=== PATIENT | female | born 1955 | race Caucasian/White ===

== ENCOUNTER 2018-01-13 09:43 | Outpatient (CLI) | payer OTHER ==
--- NOTE | 2018-01-13 11:48 | RAD ---
CHEST 2 VIEWS: Date: 01/13/18 HISTORY: Dyspnea. FINDINGS: Cardiac silhouette and pulmonary vasculature are unremarkable. Mediastinum midline with aortic calcif ication. No lobar consolidation, pneumothorax, or pleural fluid. IMPRESSION: Atherosclerosis. POS: CLARISSEH
== END 2018-01-13 09:44 | disposition home or self-care (01) ==
LOC: RAD 09:43
PROVIDERS: ATTEND Internal Medicine Critical Care Medicine
DX: R06.00 Dyspnea, unspecified (principal); I70.0 Atherosclerosis of aorta
CPT/HCPCS: 71046

== ENCOUNTER 2018-05-30 09:35 | Outpatient (CLI) | payer OTHER ==
--- NOTE | 2018-06-27 17:11 | MMO ---
BILATERAL DIGITAL SCREENING MAMMOGRAMS: 05/30/18 HISTORY: 63-year-old female presents with digital screening mammography. Patient indicates that she had prior mammograms, although none of these prior mammograms could be found, so this is in essence an baselin e study. Patient has had prior left breast surgery. The breasts are heterogeneously dense which can obscure small masses. There are numerous bilateral fo dev areas of parenchymal density asymmetry in both breasts, some of which are somewhat nodular with m ultiple circumscribed nodular areas of parenchymal density asymmetry in both breasts as well. Typical ly benign calcifications noted bilaterally. There is an area of possible architectural distortion see n in the upper left breast on the MLO view only. I feel that this does need additional imaging for fu rther assessment. In addition, there is a small cluster of microcalcifications deep within the outer mid aspect of the left breast. These also need additional imaging assessment. IMPRESSION: BIRADS 0: Incomplete: Need Additional Imaging Evaluation and/or Prior Mammograms for Comparison MAG compression spot views in CC, ML and mediolateral projections with attention to the small cluster of microcalcifications deep within the left breast outer aspect. Additionally, non MAG spot views wi th 3D and left MLO projection to evaluate an area of potential architectural distortion in the upper part of the left breast as well as full field left CC and mediolateral 3D imaging which would also a llow further assessment of the circumscribed nodular density in the central aspect of the left breast . POS: LAURO
== END 2018-05-30 09:36 | disposition home or self-care (01) ==
LOC: SCSMAMMO 09:35
PROVIDERS: ATTEND Family Medicine
DX: Z12.31 Encounter for screening mammogram for malignant neoplasm of breast (principal)
CPT/HCPCS: 77067

== ENCOUNTER 2018-09-19 10:24 | Outpatient (CLI) | payer OTHER ==
--- NOTE | 2018-09-19 12:36 | RAD ---
LUMBAR SPINE SERIES THREE VIEWS WITH FLEXION AND EXTENSION: History: Low back pain, getting worse over time. History of a fall. FINDINGS: The vertebral bodies maintain normal height. There are degenerative osteophytes present. Minimal disc narrowing is seen at L5-S1. There are degenerative facet changes present. No abnormal motion is seen on the flexion or extension views. Moderate atherosclerotic changes of the aorta present. IMPRESSION: Mild arthritic changes of the spine. POS: TPC
--- NOTE | 2018-09-19 13:26 | MRI ---
MRI LUMBAR SPINE NONCONTRAST: 09/19/2018 HISTORY: Lumbar radiculopathy. The patient complains of low back pain with pain radiating down the right leg and the inner thigh. COMPARISON: None available. FINDINGS: There is slight heterogeneity of the inferior pole right kidney. This is felt to most likely be rela gaurav to motion artifact on MRI evaluation. A definite discrete lesion is difficult to delineate, but follow-up ultrasound examination would be helpful to exclude the possibility of a renal lesion. The retroperitoneal structures otherwise demonstrate a normal MRI appearance. The conus medullaris is normal in appearance and terminates at the level of the superior endplate of the L1 vertebral body. Normal signal intensity is demonstrated in the bone marrow. T12-L1: There is minimal disk bulge, but the central spinal canal and neural foramina are patent. L1-L2: There is a mild disk osteophyte complex, resulting in very slight effacement of the ventral a spect of the thecal sac, without significant narrowing of the central spinal canal. The neural chuy azul are patent. L2-L3: There is mild disk osteophyte complex. This results in slight effacement of the ventral aspe ct of the thecal sac without significant narrowing of the central spinal canal. The neural foramina are patent. L3-L4: There is a disk osteophyte complex, centrically greater on the left, which results in slight mass effect on the ventral subarachnoid space. The neural foramina are patent. L4-L5: There is minimal disk osteophyte complex. The central spinal canal and neural foramina are p atent. Facet hypertrophic changes are present at this level. L5-S1: There is minimal disk osteophyte complex. The central spinal canal and neural foramina are p atent. Moderate facet hypertrophic changes are present at this level, and there is fluid signal inte nsity within the right-sided facet joint. IMPRESSION: 1. Findings most likely attributable to motion artifact, resulting in slight heterogeneity of the in ferior pole right kidney; however, a nonemergent renal sonogram is recommended for further evaluation . The right kidney is mildly rotated, which is a normal variant. 2. Mild disk degenerative changes, but the central spinal canal and neural foramina are patent at al l levels of the lumbar spine. POS: LAURO
== END 2018-09-19 10:25 | disposition home or self-care (01) ==
LOC: TBSIIMAG 10:24
PROVIDERS: ATTEND Neurological Surgery
DX: M47.816 Spondylosis without myelopathy or radiculopathy, lumbar region (principal); N28.89 Other specified disorders of kidney and ureter
CPT/HCPCS: 72100; 72148

== ENCOUNTER 2019-11-23 15:04 | Emergency (ER) | payer OTHER ==
[2019-11-23] MEDS ORDERED: methylPREDNISolone Sod Succ/PF 125 MG/2 ML VIAL ONE (15:42)
[2019-11-23 16:00] LABS: #Basophils 0.1 thou/uL (0.0-0.2); #Eosinphils 0.6 thou/uL (0.0-0.7); #Lymphocytes 2.2 thou/uL (1.20-3.40); #Monocytes 0.7 thou/uL (0.11-0.59); #Neutrophils 10.6 thou/uL (1.40-6.50); %Basophils 0.6 % (0.0-1.0); %Eosinophils 4.4 % (0.0-10.0); %Lymphocytes 15.3 % (21.0-51.0); %Monocytes 4.8 % (0.0-10.0); Hemoglobin 14.4 g/dL (12.0-16.0); Mean Corpuscular HGB CONC 32.7 g/dL (32.0-36.0); Mean Corpuscular Hemoglobin 30.4 pg (27.0-31.0); Mean Platelet Volume 8.2 fL (7.4-10.4); Platelet Count 269 thou/uL (130-400); RBC Distribution Width 12.6 % (11.5-14.5); Red Blood Cell (RBC) Count 4.75 mill/uL (4.20-5.40); White Blood Cell (WBC) Count 14.1 thou/uL (4.8-10.8)
--- NOTE | 2019-11-23 16:12 | RAD ---
Exam: Chest one view HISTORY:Dyspnea. Wheezing. Comparison: 01/13/2018 FINDINGS: Cardiac silhouette: Normal Aorta: Atherosclerosis Pulmonary vessels: Normal Costophrenic angles: Clear LUNGS: No masses or consolidation. Pneumothorax: None Osseous abnormalities: None IMPRESSION: No acute cardiopulmonary process. Atherosclerosis
[2019-11-23 16:20] LABS: ALT (SGPT) 20 U/L (8-55); AST (SGOT) 37 U/L (5-34); Albumin 4.6 g/dL (3.4-4.8); Alkaline Phosphatase 68 U/L (40-110); Anion Gap 16 mmol/L (10-20); BUN (Urea Nitrogen) 15 mg/dL (9.8-20.1); Bilirubin, Total 0.3 mg/dL (0.2-1.2); Calc. Creatinine Clearance 0 mL/min (70-130); Carbon Dioxide 27 mmol/L (23-31); Chloride 102 mmol/L (98-107); Estimated GFR-MDRD 58; Globulin 2.8 g/dL (2.4-3.5); Glucose 215 mg/dL (80-115); Potassium 3.7 mmol/L (3.5-5.1); Protein, Total 7.4 g/dL (6.0-8.3); Sodium 141 mmol/L (136-145)
== END 2019-11-23 16:44 | disposition home or self-care (01) ==
LOC: ERS 15:04
DX: J44.1 Chronic obstructive pulmonary disease with (acute) exacerbation (principal); I10 Essential (primary) hypertension; E11.9 Type 2 diabetes mellitus without complications; E78.5 Hyperlipidemia, unspecified; Z87.891 Personal history of nicotine dependence
CPT/HCPCS: 71045; 80053; 83605; 83880; 84484; 85025; 94640; 96374; J2930; J7620